=== PATIENT | male | born 1955 | race Caucasian/White ===

== ENCOUNTER 2023-03-05 13:03 | Observation (INO) ==
[2023-03-05 14:42] LABS: INR 1.05 (0.83-1.13)
[2023-03-05 15:00] LABS: HDL Cholesterol 42.2 mg/dL
[2023-03-05] MEDS: Enoxaparin 40 MG/0.4 ML SYR SUBCUT SCH (16:11)
[2023-03-06 07:12] LABS: Calcium 8.7 mg/dL (8.6-10.3); Creatinine, Serum 0.99 mg/dL (0.67-1.17); Magnesium 1.9 mg/dL (1.9-2.7); Potassium 4.4 mmol/L (3.5-5.0); eGFR CKD-EPI 83.5 (>60)
[2023-03-06] MEDS: Butalb/Acetamin/Caff TAB 325-50-40MG PO PRN (15:02)
[2023-03-06 20:59] VITALS: BP 142/73
== END 2023-03-06 16:50 | disposition home or self-care (01) ==
LOC: ED 13:03 → EDHOLD 13:03 → MEDTELE 16:41
PROVIDERS: ADMIT Hospitalist; ATTEND Hospitalist